=== PATIENT | male | born 1950 | race Caucasian/White ===

== ENCOUNTER → 2017-05-30 | Outpatient (CLI) | payer BC ==
[~2017-05-30] MED LIST: BENA20TA48 PO; METO-53 PO
== END | disposition home or self-care (01) ==
LOC: LAB 05:55
PROVIDERS: ATTEND Urology
DX: N40.1 Benign prostatic hyperplasia with lower urinary tract symptoms (principal)
CPT/HCPCS: 84153; 84154

== ENCOUNTER 2017-11-27 17:39 | Emergency (ER) | END 2017-11-27 20:47 | disposition home or self-care (01) ==

== ENCOUNTER 2017-12-09 06:44 | Emergency (ER) | END 2017-12-09 09:58 | disposition home or self-care (01) ==

== ENCOUNTER 2018-05-26 05:45 | Day surgery (SDC) | END 2018-05-26 13:21 | disposition home or self-care (01) ==

== ENCOUNTER 2018-11-11 06:06 | Emergency (ER) | payer SELFPAY ==
[~2018-11-11] VITALS: Ht 170.2 cm; Wt 76.2 kg
[2018-11-11 06:09] VITALS: BP 164/92; PULSE 64; RESP 16; Ht 170.2 cm; Wt 76.2 kg
--- NOTE | 2018-11-11 06:49 | ERD ---
ER Documentation Chief Complaint Chief Complaint sent by PCP for lab work HPI 68-year-old male presenting for routine labs. He was sent here by admitting because the department was closed and has labs that were requested to be drawn in August. Patient denies other medical problems at this time. These are routine labs with no warrant for emergent drop. Patient is stable. No other complaints at this time. ROS All systems reviewed and are negative except as per history of present illness. Medications Home Meds Reported Medications [Losartan] No Conflict Check, PO 05/26/18 [Metoprolol] No Conflict Check, PO 05/26/18 Allergies Allergies: Coded Allergies: No Known Drug Allergy (Verified Allergy, Unknown, 12/09/17) PMhx/Soc History of Surgery: Yes (BILATERAL INGUINAL HERNIA) Anesthesia Reaction: No Hx Neurological Disorder: No Hx Respiratory Disorders: No Hx Cardiac Disorders: Yes (HTN) Hx Psychiatric Problems: No Hx Miscellaneous Medical Probl: No Hx Alcohol Use: No Hx Substance Use: No Hx Tobacco Use: No FmHx Family History: No diabetes, No coronary disease, No other Physical Exam Vitals Vital Signs Date Temp Pulse Resp B/P (MAP) Pulse Ox O2 O2 Flow FiO2 Time Delivery Rate 11/11/18 96.7 64 16 164/92 98 06:09 (116) Physical Exam Const: No acute distress Head: Atraumatic Eyes: Normal Conjunctiva ENT: Normal External Ears, Nose and Mouth. Neck: Full range of motion. No meningismus. Resp: Clear to auscultation bilaterally Cardio: Regular rate and rhythm, no murmurs Abd: Soft, non tender, non distended. Normal bowel sounds Skin: No petechiae or rashes Back: No midline or flank tenderness Ext: No cyanosis, or edema Neur: Awake and alert Psych: Normal Mood and Affect Procedures/MDM MDM: 66-year-old male presenting for routine labs. Patient with discharge from the emergency room prior to labs as this is routine and should not be performed in the emergency room. Patient requires to follow-up outpatient. This patient should not have been seen in the emergency room. Patient is stable with no other complaints and exam is within normal limits. Departure Diagnosis: Primary Impression: Encounter for laboratory test Condition: Stable ANNMARIE ARENAS PA-C Nov 11, 2018 06:49
== END 2018-11-11 06:53 | disposition home or self-care (01) ==
LOC: FTE 06:06
DX: Z00.00 Encounter for general adult medical examination without abnormal findings (principal); I10 Essential (primary) hypertension
CPT/HCPCS: 99282

== ENCOUNTER → 2018-11-11 | Outpatient (CLI) | payer BC ==
[~2018-11-11] MED LIST changes: -BENA20TA48 PO; +LOSARTAN PO; -METO-53 PO; +METOPROLOL PO
== END | disposition home or self-care (01) ==
LOC: LAB 06:52
PROVIDERS: ATTEND Specialist
DX: I10 Essential (primary) hypertension (principal)
CPT/HCPCS: 80053; 82043